=== PATIENT | female | born 1980 | race American Indian/Alaskan Native ===

== ENCOUNTER 2020-09-09 10:22 | Inpatient (IN) | payer OTHER ==
[2020-09-09] MEDS ORDERED: LACTATED RINGERS 1,000 ML IV ONE (10:42)
[2020-09-09 11:13] LABS: Bilirubin,Urine NEG (Negative); Blood,Urine LG (Negative); Color,Urine Yellow (Yellow); Mucus,Urine FEW /HPF; Protein,Urine <15 mg/dL mg/dL (Negative); Urobilinogen,Urine < 2.0 mg/dL (<2.0)
[2020-09-09] MEDS ORDERED: ACETAMINOPHEN 325 MG TAB PO PRN (11:39)
[2020-09-09] MEDS ORDERED: ONDANSETRON 4 MG/2 ML INJ IV PRN (11:39)
[2020-09-09] MEDS ORDERED: DOCUSATE SODIUM 100 MG CAP PO PRN (11:39)
[2020-09-09] MEDS ORDERED: LACTATED RINGERS 1,000 ML IV SCH (11:45)
[2020-09-09] MEDS ORDERED: CALCIUM GLUCONATE 1000 MG/10 ML INJ IV ONE (11:47)
[2020-09-09] MEDS ORDERED: MAGNESIUM SULFATE 4 GM/100 ML BAG IV ONE (11:47)
--- NOTE | 2020-09-09 11:55 | History and Physical Report ---
History of Present Illness Date of examination: 09/09/20 Date of admission: 09/09/20 Chief complaint: Pain in rectum History of present illness: Pt is a 40 yo at 22w6d EGA who presents reporting increase in chronic vaginal bleeding and rectal pain for the past few days. She states the pain is in the right side of her bottom, comes and goes. She denies abdominal pain or leaking fluid. She has received care with [facility] since 10 weeks EGA, co-managed with [facility] for advanced maternal age, fibroid uterus, and chronic abruption. On 09/04/20 she was found to have anhydramnios and cervical shortening and funneling. 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: fibroids (multiple, subserosal), herpes Family/Genetic History: cancer (breast) - Obstetrical History Expected Date of Delivery: 01/07/21 Actual Gestation: 22 Week(s) 6 Day(s) : 2 Para: 0 Hx # Term Pregnancies: 0 Number of Pregnancies: 0 Spontaneous Abortions: 0 Induced : 1 Number of Living Children: 0 Medications and Allergies Allergies Allergy/AdvReac Type Severity Reaction Status Date / Time No Known Allergies Allergy Verified 09/09/20 10:42 Active Meds: Active Medications Acetaminophen (Acetaminophen 325 Mg Tab) 650 mg PO Q4H PRN PRN Reason: Pain MILD(1-3)/Fever >100.5/QUEEN Betamethasone Acet/Betameth SodPhos (Betamet Acet/Betamet Na Ph 6 Mg/Ml Inj 5 Ml Mdv) 12 mg IM Q24HR JOSE MANUEL Stop: 09/10/20 10:01 Calcium Gluconate (Calcium Gluconate 1000 Mg/10 Ml Inj) 1,000 mg IV ONCE ONE Stop: 09/09/20 11:48 Docusate Sodium (Docusate Sodium 100 Mg Cap) 100 mg PO Q12H PRN PRN Reason: Constipation Lactated Ringer's (Lactated Ringers) 1,000 mls @ 125 mls/hr IV DIRECT JOSE MANUEL Lactated Ringer's (Lactated Ringers) 1,000 mls @ 125 mls/hr IV DIRECT JOSE MANUEL Magnesium Sulfate (Magnesium Sulfate 4gm/100ml) 4 gm in 100 mls @ 300 mls/hr IV ONCE ONE Stop: 09/09/20 12:06 Magnesium Sulfate (Magnesium Sulfate 40gm/1000ml) 40 gm in 1,000 mls @ 50 mls/hr IV DIRECT JOSE MANUEL Indomethacin (Indomethacin 25 Mg Cap) 25 mg PO Q8HR [facility] Multivitamins/Iron/Calcium ( [id number] Fumarate-Folic Acid Vit Tab) 1 each PO QDAY JOSE MANUEL Ondansetron HCl (Ondansetron 4 Mg/2 Ml Inj) 4 mg IV Q6H PRN PRN Reason: Nausea And Vomiting Sodium Chloride (Sodium Chloride 0.9% 10 Ml Flush Syringe) 10 ml IV PRN PRN PRN Reason: LINE FLUSH Review of Systems All systems: negative Genitourinary: vaginal bleeding, no leakage of fluid, no dysuria, no pelvic pain, no genital sores, no contractions - Vital Signs Vital signs: Vital Signs Pulse BP 93 H 109/71 09/09/20 11:02 09/09/20 11:02 Temp Pulse Resp BP Pulse Ox 98.9 F 93 H 16 109/71 09/09/20 11:03 09/09/20 11:02 09/09/20 11:03 09/09/20 11:02 - Physical Exam Abdomen: Positive: soft. Negative: distention, tenderness, guarding Genitourinary (Female): Positive: normal external genitalia. Negative: perineal/vulvar lesions Cervix: Positive: other (10cc bright red blood on speculum. Cervix appears 1.5cm dilated. tissue/membranes in os.) Uterus: Positive: enlarged (gravid) Extremities: Positive: normal - Obstetrical FHR: category 1 Uterine Contraction Monitor Mode: External Uterine Contraction Frequency (min): 1 Uterine Contraction Duration: 40 Uterine Contraction Pattern: Regular Uterine Tone Measurement Phase: Contraction Uterine Contraction Intensity: Mild Results Abnormal lab results 09/09/20 Range/Units 10:45 Urine WBC (Auto) 27.0 H (0.0-6.0) /HPF All other labs normal. Assessment and Plan A: 40 yo at 22w6d EGA Suspect placental abruption and ilda-viable labor Cervical shortening/funneling Fibroid uterus Anhydramnios Plan: (Per Dr. Leblanc) Admit to [facility] Magnesium sulfate for neuroprotection Betamethasone for lung maturity Indocin 25mg PO q8hr IV fluids Ultrasound for presentation and EFW Abruption labs Closely monitor clinical status
[2020-09-09] MEDS ORDERED: LIDOCAINE-MPF (1%) 10 MG/1 ML VIAL 5 ML INFILTRATI ONE (12:13)
[2020-09-09 12:46] LABS: Basophils % (Auto) 0.4 % (0.0-1.8); Eosinophils % (Auto) 0.4 % (0.0-4.3); Hematocrit 31.4 % (30.3-42.9); Hemoglobin 10.8 gm/dl (10.1-14.3); Lymphocytes # (Auto) 1.1 K/mm3 (1.2-5.4); Lymphocytes % (Auto) 15.8 % (13.4-35.0); Mean Corpuscular HGB Conc 35 % (30-34); Mean Corpuscular Volume 92 fl (79-97); Monocytes # (Auto) 0.8 K/mm3 (0.0-0.8); Monocytes % (Auto) 11.6 % (0.0-7.3); Platelet Count 296 K/mm3 (140-440); Red Blood Count 3.41 M/mm3 (3.65-5.03); Red Cell Distribution Width 14.7 % (13.2-15.2)
[2020-09-09 12:53] LABS: INR 0.95 (0.87-1.13)
[2020-09-09 12:54] LABS: Partial Thromboplastin Time 24.3 Sec. (24.2-36.6)
[2020-09-09 12:56] LABS: Alanine Aminotransferase 11 units/L (7-56); Albumin 3.7 g/dL (3.9-5); Blood Urea Nitrogen 6 mg/dL (7-17); Calcium 9.9 mg/dL (8.4-10.2); Hemolysis Index 6
[2020-09-09 12:57] LABS: BUN/Creatinine Ratio 12
[2020-09-09] MEDS: MAGNESIUM SULFATE 40GM/1000ML 40 GM/1,000 ML BAG IV SCH (13:58)
[2020-09-09] MEDS ORDERED: cefTRIAXone/NS 2 GM/100 ML 2 GM/100 ML BAG IV ONE (15:00)
[2020-09-09] MEDS: BETAMET ACET/BETAMET NA PH 6 MG/ML INJ 5 ML MDV IM SCH (15:04)
[2020-09-09] MEDS: INDOMETHACIN 25 MG CAP PO SCH ×2 (15:05→22:23)
--- NOTE | 2020-09-09 15:11 | Ultrasound Report ---
ULTRASOUND OBSTETRIC INDICATION / CLINICAL INFORMATION: EFW, presentation, BRIGID, placenta. Clinical Gestational Age (GA): 22 weeks. 5 days TECHNIQUE: Transabdominal. COMPARISON: 05/15/2020 FINDINGS: There is a single intrauterine . Biparietal Diameter = 5.5 cm = 22 weeks. 4days Head Circumference = 20.2 cm = 22 weeks. 2 days Abdominal Circumference = 17.0 cm = 22 weeks 0.days Femur Length = 3.9 cm = 22 weeks 5.days Average Ultrasound Age (AUA) = 22 weeks 3.days Heart Rate: 152 beats per minute. Estimated Weight in grams (if calculated): 493 Estimated Weight Growth Percentile (if calculated): 24 Position: breech. Placenta: Fundal grade 0 and free of the os. Amniotic Fluid Volume: Decreased. The largest volume pocket measures 0.4 cm. Maternal Adnexa: No significant abnormality. IMPRESSION: 1. Single, living intrauterine with estimated sonographic age of 22 weeks 3.days 2. Concern for oligohydramnios. The largest volume pocket measures 0.4 cm. Close follow-up is recomme nded. 3. Breech presentation. 4. Placenta is fundal, grade 0 and free of the os. Signer Name: Evangelist Alegria MD Signed: 09/09/2020 3:06 PM Workstation Name: [email or web address]
--- NOTE | 2020-09-09 16:44 | Consultation ---
History of Present Illness Consult date: 09/09/20 Requesting physician: SERINA ZAYAS Reason for consult: ovarian cyst, PROM, other (40 YO G 2 P0010 EGA 22w5d admitted due to concerns of vaginal bleeding and oligohydramnios. ) History of present illness: 40 YO EGA 22w5d was admitted due to concerns of vaginal bleeding and oligohydramnios. At this time she is without any complaints of cramping or pressure, however, reports not feeling episodes of bleeding, however, notices periodically when changing pads. She has been started on BMZ, as well as MgSO4 She has been followed by [facility] with her most recent assessment on 09/04/20 Review of her report is significant; 1. biometry measured at the 13th%, with AC laging at the 3rd% 2. Anhydramnios 3. Cervical shortening, with funneling, distal closed cervix 1.7 cm 4. Incomplete anatomy 5. Multiple fibroids, with the largest being @ 8 cm 6. AMA - reported nl NIPT Her history does not reflect PTL concerns. Based on her having recurring bleeding during this course, there has been concern of having chronic abruption sequence, as well as having chronic intermittent SROM. The US at [facility] demonstrated normal appearing bladder and kidneys, wich removes this potential concern. 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), herpes (She denies any episodes during his ) Family/Genetic History: cancer (breast) - Obstetrical History : 2 Medications and Allergies Allergies Allergy/AdvReac Type Severity Reaction Status Date / Time No Known Allergies Allergy Verified 09/09/20 10:42 Active Meds: Active Medications Acetaminophen (Acetaminophen 325 Mg Tab) 650 mg PO Q4H PRN PRN Reason: Pain MILD(1-3)/Fever >100.5/QUEEN Betamethasone Acet/Betameth SodPhos (Betamet Acet/Betamet Na Ph 6 Mg/Ml Inj 5 Ml Mdv) 12 mg IM Q24HR JOSE MANUEL Stop: 09/10/20 10:01 Last Admin: 09/09/20 15:04 Dose: 12 mg Documented by: Docusate Sodium (Docusate Sodium 100 Mg Cap) 100 mg PO Q12H PRN PRN Reason: Constipation Lactated Ringer's (Lactated Ringers) 1,000 mls @ 125 mls/hr IV DIRECT JOSE MANUEL Magnesium Sulfate (Magnesium Sulfate 40gm/1000ml) 40 gm in 1,000 mls @ 50 mls/hr IV DIRECT JOSE MANUEL Last Admin: 09/09/20 13:58 Dose: 2 gm/hr, 50 mls/hr Documented by: Indomethacin (Indomethacin 25 Mg Cap) 25 mg PO Q8HR JOSE MANUEL Last Admin: 09/09/20 15:05 Dose: 25 mg Documented by: Multivitamins/Iron/Calcium ( [id number] Fumarate-Folic Acid Vit Tab) 1 each PO QDAY JOSE MANUEL Ondansetron HCl (Ondansetron 4 Mg/2 Ml Inj) 4 mg IV Q6H PRN PRN Reason: Nausea And Vomiting Sodium Chloride (Sodium Chloride 0.9% 10 Ml Flush Syringe) 10 ml IV PRN PRN PRN Reason: LINE FLUSH - Vital Signs Vital signs: Vital Signs Pulse BP 93 H 109/71 09/09/20 11:02 09/09/20 11:02 Temp Pulse Resp BP Pulse Ox 98.9 F 98 H 16 118/70 98 09/09/20 11:03 09/09/20 16:30 09/09/20 11:03 09/09/20 16:21 09/09/20 16:30 Results Result Diagrams: 09/09/20 11:40 09/09/20 11:40 Abnormal lab results 09/09/20 09/09/20 09/09/20 Range/Units 10:45 11:40 11:40 RBC 3.41 L (3.65-5.03) M/mm3 MCHC 35 H (30-34) % [place] % (Auto) 11.6 H (0.0-7.3) % Lymph # (Auto) 1.1 L (1.2-5.4) K/mm3 Seg Neutrophils % 71.8 H (40.0-70.0) % Fibrinogen (211-480) mg/dl Sodium 136 L (137-145) mmol/L BUN 6 L (7-17) mg/dL Creatinine 0.5 L (0.6-1.2) mg/dL Albumin 3.7 L (3.9-5) g/dL Urine WBC (Auto) 27.0 H (0.0-6.0) /HPF 09/09/20 Range/Units 11:40 RBC (3.65-5.03) M/mm3 MCHC (30-34) % [place] % (Auto) (0.0-7.3) % Lymph # (Auto) (1.2-5.4) K/mm3 Seg Neutrophils % (40.0-70.0) % Fibrinogen 575 H (211-480) mg/dl Sodium (137-145) mmol/L BUN (7-17) mg/dL Creatinine (0.6-1.2) mg/dL Albumin (3.9-5) g/dL Urine WBC (Auto) (0.0-6.0) /HPF All other labs normal. Ultrasound: other ([facility] Ultrasound report from 09/04/20) Assessment and Plan IMPRESSIONS: 1. IUP 22w5d 2. Suspected prolonged SROM 3. Severe oligohydramnios 4. Having periodic contractions 5. I do not suspect chorio 6. HSV history without episodes this 7. AMA - Negative aneuploidy screen result RECOMMENDATIONS: 1. Treat patient consistent with SROM 2. Initiate IV antibiotics X 48 hrs, then convert to PO to complete a 7 day course 3. Initiate twice weekly BPP at 24 weeks 4. Monitor EFW due to IUGR risks 5. Initiate daily valtrex 6. Notify [facility] with any concerns
[2020-09-09] MEDS ORDERED: AZITHROMYCIN 250 MG TAB PO ONE (17:06)
[2020-09-09] MEDS: AMPICILLIN/NS 2 GM/100 ML 2 GM/100 ML BAG IV SCH (20:33)
[2020-09-10] MEDS: AMPICILLIN/NS 2 GM/100 ML 2 GM/100 ML BAG IV SCH ×4 (02:01→20:05)
[2020-09-10] MEDS: LACTATED RINGERS 1,000 ML IV SCH (03:39)
[2020-09-10] MEDS: INDOMETHACIN 25 MG CAP PO SCH ×3 (06:02→21:55)
[2020-09-10] MEDS: MAGNESIUM SULFATE 40GM/1000ML 40 GM/1,000 ML BAG IV SCH (08:23)
[2020-09-10] MEDS: PRENATAL VIT27-FE FUMARATE-FOLIC ACID VIT TAB PO SCH (10:00)
--- NOTE | 2020-09-10 10:51 | Progress Note ---
Assessment and Plan - Patient Problems (1) labor Current Visit: Yes Status: Acute Plan to address problem: NICU has been consulted and the prognosis has been discussed with the family Continue supportive care Deliver for signs and symptoms of chorioamnionitis (2) Anhydramnios Current Visit: Yes Status: Acute (3) premature rupture of membranes Current Visit: Yes Status: Acute Subjective - Subjective Date of service: 09/10/20 Principal diagnosis: labor and and oligohydramnios Interval history: 40-year-old -0-1-0 at 23+0 weeks who presents with a history of cervical shortening and anhydramnios on ultrasound demonstrated September 04. The patient presented to labor and delivery triage with a complaint of uterine cramping and contractions is noted to be visually 1 to 2 cm dilated. The patient has been admitted for magnesium sulfate therapy and steroid treatment. She is undergoing antibiotic therapy for presumed premature rupture membranes. Patient reports: no new complaints Objective - Vital Signs Vital Signs: Vital Signs - 12hr 09/09/20 09/09/20 09/10/20 23:52 23:53 03:40 Temperature 98 F Pulse Rate 86 83 Respiratory Rate Blood Pressure 117/64 112/69 Blood Pressure [Right] O2 Sat by Pulse 96 97 Oximetry 09/10/20 09/10/20 09/10/20 03:41 08:29 10:02 Temperature 98 F 98 F 97.9 F Pulse Rate 81 Respiratory 18 Rate Blood Pressure Blood Pressure 112/69 [Right] O2 Sat by Pulse 97 Oximetry 09/10/20 09/10/20 09/10/20 10:13 10:18 10:23 Temperature Pulse Rate 90 91 H 89 Respiratory Rate Blood Pressure Blood Pressure [Right] O2 Sat by Pulse 99 99 99 Oximetry 09/10/20 09/10/20 09/10/20 10:28 10:33 10:38 Temperature Pulse Rate 93 H 93 H 91 H Respiratory Rate Blood Pressure Blood Pressure [Right] O2 Sat by Pulse 99 97 100 Oximetry 09/10/20 09/10/20 10:43 10:48 Temperature Pulse Rate 92 H 95 H Respiratory Rate Blood Pressure Blood Pressure [Right] O2 Sat by Pulse 100 100 Oximetry - Labs Labs: Abnormal Labs 09/09/20 09/09/20 09/09/20 10:45 11:40 11:40 RBC 3.41 L MCHC 35 H [place] % (Auto) 11.6 H Lymph # (Auto) 1.1 L Seg Neutrophils % 71.8 H Fibrinogen Sodium 136 L BUN 6 L Creatinine 0.5 L Magnesium Albumin 3.7 L Urine WBC (Auto) 27.0 H 09/09/20 09/10/20 09/10/20 11:40 01:02 09:58 RBC MCHC [place] % (Auto) Lymph # (Auto) Seg Neutrophils % Fibrinogen 575 H Sodium BUN Creatinine Magnesium 4.60 H 5.40 H Albumin Urine WBC (Auto) Laboratory Results - last 24 hr 09/09/20 09/09/20 09/09/20 10:45 11:40 11:40 WBC 7.3 RBC 3.41 L Hgb 10.8 Hct 31.4 MCV 92 MCH 32 MCHC 35 H RDW 14.7 Plt Count 296 Lymph % (Auto) 15.8 [place] % (Auto) 11.6 H Eos % (Auto) 0.4 Baso % (Auto) 0.4 Lymph # (Auto) 1.1 L [place] # (Auto) 0.8 Eos # (Auto) 0.0 Baso # (Auto) 0.0 Seg Neutrophils % 71.8 H Seg Neutrophils # 5.2 PT INR APTT Fibrinogen Sodium 136 L Potassium 3.8 Chloride 103.8 Carbon Dioxide 22 Anion Gap 14 BUN 6 L Creatinine 0.5 L Estimated GFR > 60 BUN/Creatinine Ratio 12 Glucose 78 Calcium 9.9 Magnesium Total Bilirubin 0.20 AST 13 ALT 11 Alkaline Phosphatase 57 Total Protein 6.8 Albumin 3.7 L Albumin/Globulin Ratio 1.2 Urine Color Yellow Urine Turbidity Slightly-cloudy Urine pH 6.0 Ur Specific [place] 1.013 Urine Protein <15 mg/dl Urine Glucose (UA) Neg Urine Ketones Neg Urine Blood Lg Urine Nitrite Neg Urine Bilirubin Neg Urine Urobilinogen < 2.0 Ur Leukocyte Esterase Mod Urine WBC (Auto) 27.0 H Urine RBC (Auto) 43.0 U Epithel Cells (Auto) 10.0 Urine Mucus Few Blood Type Antibody Screen 09/09/20 09/09/20 09/09/20 11:40 11:40 11:40 WBC RBC Hgb Hct MCV MCH MCHC RDW Plt Count Lymph % (Auto) [place] % (Auto) Eos % (Auto) Baso % (Auto) Lymph # (Auto) [place] # (Auto) Eos # (Auto) Baso # (Auto) Seg Neutrophils % Seg Neutrophils # PT 12.5 INR 0.95 APTT 24.3 Fibrinogen 575 H Sodium Potassium Chloride Carbon Dioxide Anion Gap BUN Creatinine Estimated GFR BUN/Creatinine Ratio Glucose Calcium Magnesium 1.70 Total Bilirubin AST ALT Alkaline Phosphatase Total Protein Albumin Albumin/Globulin Ratio Urine Color Urine Turbidity Urine pH Ur Specific [place] Urine Protein Urine Glucose (UA) Urine Ketones Urine Blood Urine Nitrite Urine Bilirubin Urine Urobilinogen Ur Leukocyte Esterase Urine WBC (Auto) Urine RBC (Auto) U Epithel Cells (Auto) Urine Mucus Blood Type B POSITIVE Antibody Screen Negative 09/10/20 09/10/20 01:02 09:58 WBC RBC Hgb Hct MCV MCH MCHC RDW Plt Count Lymph % (Auto) [place] % (Auto) Eos % (Auto) Baso % (Auto) Lymph # (Auto) [place] # (Auto) Eos # (Auto) Baso # (Auto) Seg Neutrophils % Seg Neutrophils # PT INR APTT Fibrinogen Sodium Potassium Chloride Carbon Dioxide Anion Gap BUN Creatinine Estimated GFR BUN/Creatinine Ratio Glucose Calcium Magnesium 4.60 H 5.40 H Total Bilirubin AST ALT Alkaline Phosphatase Total Protein Albumin Albumin/Globulin Ratio Urine Color Urine Turbidity Urine pH Ur Specific [place] Urine Protein Urine Glucose (UA) Urine Ketones Urine Blood Urine Nitrite Urine Bilirubin Urine Urobilinogen Ur Leukocyte Esterase Urine WBC (Auto) Urine RBC (Auto) U Epithel Cells (Auto) Urine Mucus Blood Type Antibody Screen
[2020-09-10] MEDS: valACYclovir 500 MG TAB PO SCH (14:57)
[2020-09-10] MEDS: BETAMET ACET/BETAMET NA PH 6 MG/ML INJ 5 ML MDV IM SCH (14:57)
--- NOTE | 2020-09-10 16:25 | Consultation ---
Consult Note - Parent Education I met with parent(s) and discussed the following:: Need for NICU admission, Poss ible need for intubation and surfactant or other resp support, Temperature regulation, Head ultrasounds to evaluate IVH, Eye exams for ROP screening, Possible need for IV fluids/TPN and IV antibiotics, Possible need for umbilical lines, Importance of providing breast milk & encouraged pumping aft delivery, Donor breast milk if baby meets criteria after , Slow feeding advancement and monitoring of tolerance. NG/OG feeds, Need to monitor for jaundice, Data for survival & survival without significant co-morbidities Parent(s) demonstrated understanding of all the information:: Yes Assessment and Plan - Assessment Gestation:: 23 Baby's gender: Female - Plan Plan: Agree with Mag & steroids Will attend delivery Please call NICU with questions
[2020-09-11] MEDS: AMPICILLIN/NS 2 GM/100 ML 2 GM/100 ML BAG IV SCH ×3 (02:03→14:23)
[2020-09-11] MEDS: INDOMETHACIN 25 MG CAP PO SCH ×3 (06:12→21:58)
[2020-09-11] MEDS: PRENATAL VIT27-FE FUMARATE-FOLIC ACID VIT TAB PO SCH (09:57)
--- NOTE | 2020-09-11 10:54 | Progress Note ---
Assessment and Plan - Patient Problems (1) labor Current Visit: Yes Status: Acute Plan to address problem: Continue expectant management (2) Anhydramnios Current Visit: Yes Status: Acute (3) premature rupture of membranes Current Visit: Yes Status: Acute Subjective - Subjective Date of service: 09/11/20 Principal diagnosis: labor and and oligohydramnios Interval history: 40-year-old -0-1-0 at 23+1 weeks who presents with a history of cervical shortening and anhydramnios on ultrasound demonstrated September 04. The patient is currently without any significant complaints. She denies any contractions or pelvic pain. Patient reports: no new complaints Objective - Vital Signs Vital Signs: Vital Signs - 12hr 09/11/20 09/11/20 09/11/20 02:00 03:16 06:00 Temperature 98.6 F 98.1 F Pulse Rate 78 Respiratory 16 16 Rate Blood Pressure 118/68 Blood Pressure [Right] 09/11/20 09/11/20 09/11/20 07:04 07:05 09:59 Temperature 98.5 F 98.8 F Pulse Rate 80 80 75 Respiratory 14 14 Rate Blood Pressure 109/62 114/59 Blood Pressure 109/62 114/59 [Right] - Labs Labs: Abnormal Labs 09/09/20 09/09/20 09/09/20 10:45 11:40 11:40 RBC 3.41 L MCHC 35 H [place] % (Auto) 11.6 H Lymph # (Auto) 1.1 L Seg Neutrophils % 71.8 H Fibrinogen Sodium 136 L BUN 6 L Creatinine 0.5 L Magnesium Albumin 3.7 L Urine WBC (Auto) 27.0 H 09/09/20 09/10/20 09/10/20 11:40 01:02 09:58 RBC MCHC [place] % (Auto) Lymph # (Auto) Seg Neutrophils % Fibrinogen 575 H Sodium BUN Creatinine Magnesium 4.60 H 5.40 H Albumin Urine WBC (Auto) Laboratory Results - last 24 hr 09/10/20 10:28 Coronavirus (PCR) Negative
[2020-09-11] MEDS: valACYclovir 500 MG TAB PO SCH (12:31)
[2020-09-11] MEDS: AMOXICILLIN 250 MG CAP PO SCH ×2 (17:40→21:58)
[2020-09-12] MEDS: AMOXICILLIN 250 MG CAP PO SCH ×3 (05:05→22:16)
[2020-09-12] MEDS: PRENATAL VIT27-FE FUMARATE-FOLIC ACID VIT TAB PO SCH (09:52)
[2020-09-12] MEDS: valACYclovir 500 MG TAB PO SCH (10:00)
--- NOTE | 2020-09-12 13:25 | Progress Note ---
Assessment and Plan A: IUP at 23w2d s/p magnesium sulfate for neuroprotection and two doses of betamethasone Anhydramnios Suspected PPROM on latency antibiotics Suspected Chronic Abruption Sequence Multiple large uterine fibroids Malpresentation- breech GBS unknown P: Continue latency antibiotics Closely monitor maternal and status Subjective - Subjective Date of service: 09/12/20 Principal diagnosis: labor and and oligohydramnios Interval history: Pt continues to display positive attitude. Reports spotting when she urinates. Denies leakage of fluid. Reports movement. Patient reports: vaginal bleeding (per HPI ), movement normal, no new complaints, no loss of fluid, no contractions Objective - Vital Signs Vital Signs: Vital Signs - 12hr 09/12/20 09/12/20 09/12/20 03:32 07:44 07:45 Temperature 98.7 F 98.5 F Pulse Rate 65 59 L 60 Respiratory 18 18 Rate Blood Pressure 112/69 109/61 Blood Pressure 112/69 109/61 [Right] O2 Sat by Pulse 98 98 98 Oximetry 09/12/20 09/12/20 11:39 11:40 Temperature 98.8 F Pulse Rate 66 65 Respiratory 18 Rate Blood Pressure 111/66 Blood Pressure 111/66 [Right] O2 Sat by Pulse 99 98 Oximetry - Exam Breasts: deferred Abdomen: Present: soft (gravid, non tender ). Absent: tenderness Uterus: Present: normal (gravid) FHR: auscultation normal Uterine Contraction Pattern: Absent Uterine Tone Measurement Phase: Resting Extremities: normal - Labs Labs: Abnormal Labs 09/09/20 09/09/20 09/09/20 10:45 11:40 11:40 RBC 3.41 L MCHC 35 H [place] % (Auto) 11.6 H Lymph # (Auto) 1.1 L Seg Neutrophils % 71.8 H Fibrinogen Sodium 136 L BUN 6 L Creatinine 0.5 L Magnesium Albumin 3.7 L Urine WBC (Auto) 27.0 H 09/09/20 09/10/20 09/10/20 11:40 01:02 09:58 RBC MCHC [place] % (Auto) Lymph # (Auto) Seg Neutrophils % Fibrinogen 575 H Sodium BUN Creatinine Magnesium 4.60 H 5.40 H Albumin Urine WBC (Auto) - Results US- obstetric: report reviewed
[2020-09-12] MEDS: ERYTHROMYCIN BASE 250 MG CAPSULE DR PO SCH ×2 (14:00→22:16)
[2020-09-13] MEDS: AMOXICILLIN 250 MG CAP PO SCH ×3 (07:26→22:54)
[2020-09-13] MEDS: ERYTHROMYCIN BASE 250 MG CAPSULE DR PO SCH ×3 (07:26→22:54)
[2020-09-13] MEDS: valACYclovir 500 MG TAB PO SCH (09:55)
[2020-09-13] MEDS: PRENATAL VIT27-FE FUMARATE-FOLIC ACID VIT TAB PO SCH (09:55)
--- NOTE | 2020-09-13 13:01 | Consultation ---
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 History: 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 (right ankle surgery) 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, 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), 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 (She denies any episodes during his ) Family/Genetic History: cancer (breast) - Obstetrical History : 2 Medications and Allergies Allergies Allergy/AdvReac Type Severity Reaction Status Date / Time No Known Allergies Allergy Verified 09/09/20 10:42 Home Medications Medication Instructions Recorded Confirmed Last Taken Type B12 Active 1,000 mg PO DAILY 09/10/20 09/10/20 09/08/20 History Calcium 600 mg-D3 10 Mcg Sfgl 600 mg PO DAILY 09/10/20 09/10/20 09/08/20 History Ferrous Sulfate [Iron 325 MG] 325 mg PO DAILY 09/10/20 09/10/20 09/08/20 History One Daily Tablet 200 mg PO DAILY 09/10/20 09/10/20 09/08/20 History Active Meds: Active Medications Acetaminophen (Acetaminophen 325 Mg Tab) 650 mg PO Q4H PRN PRN Reason: Pain MILD(1-3)/Fever >100.5/QUEEN Amoxicillin (Amoxicillin 250 Mg Cap) 250 mg PO Q8HR JOSE MANUEL; Protocol Stop: 09/16/20 17:29 Last Admin: 09/13/20 07:26 Dose: 250 mg Documented by: Docusate Sodium (Docusate Sodium 100 Mg Cap) 100 mg PO Q12H PRN PRN Reason: Constipation Last Admin: 09/09/20 20:33 Dose: 100 mg Documented by: Erythromycin (Erythromycin Base [address]) 250 mg PO Q8HR [facility]; Protocol Stop: 09/17/20 13:59 Last Admin: 09/13/20 07:26 Dose: 250 mg Documented by: Lactated Ringer's (Lactated Ringers) 1,000 mls @ 125 mls/hr IV DIRECT [facility] Last Admin: 09/10/20 03:39 Dose: 75 mls/hr Documented by: Magnesium Sulfate (Magnesium Sulfate 40gm/1000ml) 40 gm in 1,000 mls @ 50 mls/hr IV DIRECT JOSE MANUEL Last Admin: 09/10/20 08:23 Dose: 2 gm/hr, 50 mls/hr Documented by: Multivitamins/Iron/Calcium ( [id number] Fumarate-Folic Acid Vit Tab) 1 each PO QDAY [facility] Last Admin: 09/13/20 09:55 Dose: 1 each Documented by: Ondansetron HCl (Ondansetron 4 Mg/2 Ml Inj) 4 mg IV Q6H PRN PRN Reason: Nausea And Vomiting Sodium Chloride (Sodium Chloride 0.9% 10 Ml Flush Syringe) 10 ml IV PRN PRN PRN Reason: LINE FLUSH Valacyclovir HCl (Valacyclovir 500 Mg Tab) 1,000 mg PO QDAY [facility] Last Admin: 09/13/20 09:55 Dose: 1,000 mg Documented by: - Vital Signs Vital signs: Vital Signs Pulse BP 93 H 109/71 09/09/20 11:02 09/09/20 11:02 Temp Pulse Resp BP Pulse Ox 99.0 F 76 14 116/70 99 09/13/20 10:56 09/13/20 10:56 09/13/20 10:56 09/13/20 10:56 09/13/20 10:56 Results Result Diagrams: 09/09/20 11:40 09/09/20 11:40 All other labs normal. Assessment and Plan IMPRESSIONS: 1. Gomez IUP at 23 2/7 weeks 2. Suspected prolonged SROM Verse Chronic Abruption Oligohydramnios Sequence 3. Severe oligohydramnios 4. Denies Ctx 5. Anemia 6. HSV history without episodes this 7. AMA - Negative aneuploidy screen result - Please place in chart from OB 8. Breech ( US done 09/09/20 ) RECOMMENDATIONS: 1. Delivery for S/S of [place] or compromise 2. Initiate IV antibiotics X 48 hrs, then convert to PO to complete a 7 day course 3. Initiate twice weekly BPP at 24 weeks and growth scan US q 3 weeks 4. Monitor EFW due to IUGR risks 5. Initiate daily valtrex 6. Notify [facility] with any concerns 7. Iron BID 8. NICU consult - done
--- NOTE | 2020-09-13 13:24 | Progress Note ---
Assessment and Plan - Patient Problems (1) premature rupture of membranes Current Visit: Yes Status: Acute Plan to address problem: APA recommendations reviewed. Continue IV antibiotics X 48 hrs followed by PO to complete a 7 day course Delivery for S/S of Ch[place] or compromise Twice weekly BPP at 24 weeks and growth scan US q 3 weeks Monitor EFW due to IUGR risks (2) Oligohydramnios antepartum Current Visit: Yes Status: Acute Plan to address problem: continue to monitor as outlined for signs of compromise -NICU consulation complete (3) Placental abruption in second trimester Current Visit: Yes Status: Acute Plan to address problem: Bleeding stable (4) Breech presentation Current Visit: Yes Status: Acute (5) Herpes genitalis Current Visit: Yes Status: Acute Plan to address problem: valtrex daily ordered Subjective - Subjective Principal diagnosis: labor and and oligohydramnios Interval history: 40-year-old -0-1-0 at 23w2d with a history of cervical shortening and anhydramnios on ultrasound demonstrated September 04, admitted with suspected PPROM and chronic placental abruption. She has been treated with magnesium for neuroprotection and steroids. She is undergoing antibiotic therapy for presumed premature rupture membranes. Patient reports: other (No acute events overnight, she denies uterine tenderness or foul discharge. ), no new complaints, no vaginal bleeding Objective - Vital Signs Vital Signs: Vital Signs - 12hr 09/13/20 09/13/20 09/13/20 07:11 07:12 07:13 Temperature Pulse Rate 76 Respiratory Rate Blood Pressure 117/58 Blood Pressure [Right] O2 Sat by Pulse 85 84 Oximetry 09/13/20 09/13/20 09/13/20 07:15 07:17 07:22 Temperature 99.0 F Pulse Rate 84 69 76 Respiratory 16 Rate Blood Pressure Blood Pressure 117/58 [Right] O2 Sat by Pulse 100 100 100 Oximetry 09/13/20 09/13/20 09/13/20 07:27 07:30 07:32 Temperature Pulse Rate 67 137 H 72 Respiratory Rate Blood Pressure Blood Pressure [Right] O2 Sat by Pulse 100 85 100 Oximetry 09/13/20 09/13/20 09/13/20 07:37 07:42 07:47 Temperature Pulse Rate 73 66 70 Respiratory Rate Blood Pressure Blood Pressure [Right] O2 Sat by Pulse 100 100 99 Oximetry 01/09/13/20 09/13/20 07:52 07:57 07:58 Temperature Pulse Rate 67 67 73 Respiratory Rate Blood Pressure Blood Pressure [Right] O2 Sat by Pulse 99 99 87 Oximetry 09/13/20 09/13/20 09/13/20 08:02 08:07 09:13 Temperature 98.8 F Pulse Rate 77 85 Respiratory 14 Rate Blood Pressure Blood Pressure [Right] O2 Sat by Pulse 99 99 Oximetry 09/13/20 09/13/20 10:55 10:56 Temperature 99.0 F Pulse Rate 72 76 Respiratory 14 Rate Blood Pressure 116/70 Blood Pressure 116/70 [Right] O2 Sat by Pulse 99 99 Oximetry - Exam Breasts: deferred Cardiovascular: Regular rate Abdomen: Absent: tenderness, guarding FHR: category 1 Uterine Contraction Pattern: Absent Extremities: normal, other (SCDs in place) - Labs Labs: Abnormal Labs 09/09/20 09/09/20 09/09/20 10:45 11:40 11:40 RBC 3.41 L MCHC 35 H [place] % (Auto) 11.6 H Lymph # (Auto) 1.1 L Seg Neutrophils % 71.8 H Fibrinogen Sodium 136 L BUN 6 L Creatinine 0.5 L Magnesium Albumin 3.7 L Urine WBC (Auto) 27.0 H 09/09/20 09/10/20 09/10/20 11:40 01:02 09:58 RBC MCHC [place] % (Auto) Lymph # (Auto) Seg Neutrophils % Fibrinogen 575 H Sodium BUN Creatinine Magnesium 4.60 H 5.40 H Albumin Urine WBC (Auto)
[2020-09-13] MEDS: LACTATED RINGERS 1,000 ML IV SCH (15:42)
--- NOTE | 2020-09-13 23:59 | Event Note ---
Date: 09/13/20 Late Entry: NST reviewed 1530 Baseline:150s Variability: Moderate Decelerations: variable Contractions: none, irritability present Plan: conservative treatment with O2,fluid bolus and repositioning prolonged monitoring for 4 hours Will reevaluate, plan as outlined per APA-delivery for s/s of chorioamnionits or compromise
--- NOTE | 2020-09-14 08:43 | Progress Note ---
Assessment and Plan - Patient Problems (1) labor Current Visit: Yes Status: Acute Plan to address problem: continue supportive and expectant management deliver for evidence of chorioamnionitis (2) Anhydramnios Current Visit: Yes Status: Acute (3) premature rupture of membranes Current Visit: Yes Status: Acute Subjective - Subjective Date of service: 09/14/20 Principal diagnosis: labor and and oligohydramnios Interval history: 40-year-old HD#6, -0-1-0 at 23+4 weeks who presents with a history of cervical shortening and anhydramnios on ultrasound demonstrated September 04. The patient is currently without any significant complaints. She states she has had intermittent spotting thru out the . She denies any pain or contractions. tracing last night with intermittent variables which is not unexpected for gestation. Patient reports: vaginal bleeding (per HPI ), movement normal, no new complaints, no loss of fluid, no contractions Objective - Vital Signs Vital Signs: Vital Signs - 12hr 09/13/20 09/14/20 09/14/20 23:35 03:36 07:16 Temperature 98.4 F 98.8 F Pulse Rate 87 Respiratory Rate Blood Pressure Blood Pressure [Left] O2 Sat by Pulse 83 L Oximetry 09/14/20 07:17 Temperature 98.3 F Pulse Rate 66 Respiratory 18 Rate Blood Pressure 123/75 Blood Pressure 123/75 [Left] O2 Sat by Pulse 99 Oximetry - Labs Labs: Abnormal Labs 09/09/20 09/09/20 09/09/20 10:45 11:40 11:40 RBC 3.41 L MCHC 35 H [place] % (Auto) 11.6 H Lymph # (Auto) 1.1 L Seg Neutrophils % 71.8 H Fibrinogen Sodium 136 L BUN 6 L Creatinine 0.5 L Magnesium Albumin 3.7 L Urine WBC (Auto) 27.0 H 09/09/20 09/10/20 09/10/20 11:40 01:02 09:58 RBC MCHC [place] % (Auto) Lymph # (Auto) Seg Neutrophils % Fibrinogen 575 H Sodium BUN Creatinine Magnesium 4.60 H 5.40 H Albumin Urine WBC (Auto)
[2020-09-14] MEDS: PRENATAL VIT27-FE FUMARATE-FOLIC ACID VIT TAB PO SCH (09:19)
[2020-09-14] MEDS: valACYclovir 500 MG TAB PO SCH (09:19)
--- NOTE | 2020-09-14 11:31 | Death Summary ---
Summary - Providers Consults: 09/09/20 12:12 Consult to Physician [CONS] Urgent Comment: Consulting Provider: MARIA DEL CARMEN COLLAZO Physician Instructions: Reason For Exam: vaginal bleeding, periviable labor 09/09/20 17:01 Consult to Physician [CONS] Routine Comment: Consulting Provider: BENITO WILHELM Physician Instructions: Reason For Exam: PPROM, EGA 22w6d Attending: ARTI CARRASCO - summary Date of admission: 09/11/20 15:04 - Final diagnosis (1) premature rupture of membranes Note: Final diagnosis: (2) Oligohydramnios antepartum Note: Final diagnosis: (3) Placental abruption in second trimester Note: Final diagnosis: (4) Breech presentation Note: Final diagnosis: (5) Herpes genitalis Note: Final diagnosis:
[2020-09-14] MEDS: ERYTHROMYCIN BASE 250 MG CAPSULE DR PO SCH ×2 (13:36→22:10)
[2020-09-14] MEDS: AMOXICILLIN 250 MG CAP PO SCH ×2 (13:36→22:10)
[2020-09-15] MEDS: ERYTHROMYCIN BASE 250 MG CAPSULE DR PO SCH ×2 (06:26→18:51)
[2020-09-15] MEDS: AMOXICILLIN 250 MG CAP PO SCH ×2 (06:26→18:51)
--- NOTE | 2020-09-15 08:58 | Progress Note ---
Assessment and Plan A: IUP at 23w5d s/p magnesium sulfate for neuroprotection and two doses of betamethasone Anhydramnios Suspected PPROM on latency antibiotics Suspected Chronic Abruption Sequence Multiple large uterine fibroids Malpresentation- breech GBS unknown P: Continue latency antibiotics Closely monitor maternal and status Repeat CBC, Type and Screen today Subjective - Subjective Date of service: 09/15/20 Principal diagnosis: labor and and oligohydramnios Interval history: Pt continues to display positive attitude. Reports spotting when she urinate, and when she wipes. Denies leakage of fluid. Reports movement. Patient reports: vaginal bleeding (per HPI ), movement normal, no new complaints, no loss of fluid, no contractions Objective - Vital Signs Vital Signs: Vital Signs - 12hr 09/14/20 09/14/20 09/14/20 21:05 22:32 23:05 Temperature 98.4 F 98.5 F Pulse Rate 88 Respiratory Rate Blood Pressure 136/84 Blood Pressure [Left] 09/15/20 09/15/20 09/15/20 06:27 07:14 07:21 Temperature 98.3 F Pulse Rate 82 76 76 Respiratory 14 Rate Blood Pressure 131/71 119/67 Blood Pressure 119/67 [Left] - Exam Breasts: deferred Abdomen: Present: soft (obese ). Absent: tenderness Uterus: Present: normal (gravid ) Uterine Contraction Monitor Mode: External Uterine Contraction Pattern: Absent Uterine Tone Measurement Phase: Resting Extremities: normal - Labs Labs: Abnormal Labs 09/09/20 09/09/20 09/09/20 10:45 11:40 11:40 RBC 3.41 L MCHC 35 H [place] % (Auto) 11.6 H Lymph # (Auto) 1.1 L Seg Neutrophils % 71.8 H Fibrinogen Sodium 136 L BUN 6 L Creatinine 0.5 L Magnesium Albumin 3.7 L Urine WBC (Auto) 27.0 H 09/09/20 09/10/20 09/10/20 11:40 01:02 09:58 RBC MCHC [place] % (Auto) Lymph # (Auto) Seg Neutrophils % Fibrinogen 575 H Sodium BUN Creatinine Magnesium 4.60 H 5.40 H Albumin Urine WBC (Auto)
[2020-09-15 09:38] LABS: Basophils # (Auto) 0.1 K/mm3 (0.0-0.1); Basophils % (Auto) 0.7 % (0.0-1.8); Eosinophils # (Auto) 0.1 K/mm3 (0.0-0.4); Eosinophils % (Auto) 1.3 % (0.0-4.3); Hematocrit 29.6 % (30.3-42.9); Hemoglobin 10.2 gm/dl (10.1-14.3); Lymphocytes # (Auto) 1.4 K/mm3 (1.2-5.4); Lymphocytes % (Auto) 16.7 % (13.4-35.0); Mean Corpuscular HGB Conc 34 % (30-34); Mean Corpuscular Volume 93 fl (79-97); Monocytes # (Auto) 0.6 K/mm3 (0.0-0.8); Platelet Count 279 K/mm3 (140-440); Red Cell Distribution Width 14.8 % (13.2-15.2)
[2020-09-15] MEDS: valACYclovir 500 MG TAB PO SCH (10:09)
[2020-09-15] MEDS: PRENATAL VIT27-FE FUMARATE-FOLIC ACID VIT TAB PO SCH (10:09)
[2020-09-16] MEDS: ERYTHROMYCIN BASE 250 MG CAPSULE DR PO SCH ×4 (03:11→21:24)
[2020-09-16] MEDS: AMOXICILLIN 250 MG CAP PO SCH ×3 (03:11→14:20)
[2020-09-16] MEDS: valACYclovir 500 MG TAB PO SCH (09:43)
[2020-09-16] MEDS: PRENATAL VIT27-FE FUMARATE-FOLIC ACID VIT TAB PO SCH (09:44)
--- NOTE | 2020-09-16 14:38 | Progress Note ---
Assessment and Plan A: IUP at 23w5d s/p magnesium sulfate for neuroprotection and two doses of betamethasone Anhydramnios Suspected PPROM s/p latency antibiotics Suspected Chronic Abruption Sequence Multiple large uterine fibroids Malpresentation- breech GBS unknown P: BPP tomorrow per MFM recommendations Continue to monitor for signs of chorioamnionitis Subjective - Subjective Date of service: 09/16/20 Principal diagnosis: labor and and oligohydramnios Interval history: No overnight events. Pt continues to display positive attitude. Reports spotting when she urinate, and when she wipes. Denies leakage of fluid. Reports movement. Patient reports: vaginal bleeding (per HPI ), movement normal, no new complaints, no loss of fluid, no contractions Objective - Vital Signs Vital Signs: Vital Signs - 12hr 09/16/20 09/16/20 09/16/20 03:09 08:39 12:11 Temperature 98.0 F 98.9 F 98.6 F Pulse Rate 88 83 92 H Respiratory 18 18 18 Rate Blood Pressure 119/67 119/69 117/79 Blood Pressure 119/67 [Left] O2 Sat by Pulse 98 98 Oximetry 09/16/20 12:12 Temperature Pulse Rate 61 Respiratory Rate Blood Pressure Blood Pressure [Left] O2 Sat by Pulse 93 Oximetry - Exam Breasts: deferred Abdomen: Present: soft (gravid ). Absent: tenderness Uterus: Present: normal (gravid ) FHR: auscultation normal Uterine Contraction Monitor Mode: External Uterine Tone Measurement Phase: Resting Extremities: normal - Labs Labs: Abnormal Labs 09/09/20 09/09/20 09/09/20 10:45 11:40 11:40 RBC 3.41 L Hct MCHC 35 H [place] % (Auto) 11.6 H Lymph # (Auto) 1.1 L Seg Neutrophils % 71.8 H Fibrinogen Sodium 136 L BUN 6 L Creatinine 0.5 L Magnesium Albumin 3.7 L Urine WBC (Auto) 27.0 H 09/09/20 09/10/20 09/10/20 11:40 01:02 09:58 RBC Hct MCHC [place] % (Auto) Lymph # (Auto) Seg Neutrophils % Fibrinogen 575 H Sodium BUN Creatinine Magnesium 4.60 H 5.40 H Albumin Urine WBC (Auto) 09/15/20 09:02 RBC 3.20 L Hct 29.6 L MCHC [place] % (Auto) Lymph # (Auto) Seg Neutrophils % 74.3 H Fibrinogen Sodium BUN Creatinine Magnesium Albumin Urine WBC (Auto)
[2020-09-17] MEDS: ERYTHROMYCIN BASE 250 MG CAPSULE DR PO SCH (06:18)
--- NOTE | 2020-09-17 09:00 | Ultrasound Report ---
ULTRASOUND OBSTETRIC LIMITED INDICATION / CLINICAL INFORMATION: well being. Clinical Gestational Age (GA) in weeks, days: TECHNIQUE: Transabdominal. COMPARISON: 09/09/2020. FINDINGS: AMNIOTIC FLUID INDEX (cm) = 0.00 (normal = 7-24 cm) PRESENTATION: Breech. ADDITIONAL FINDINGS: Anterior/fundal placenta, free of the os. MEASUREMENTS: - Biparietal Diameter = 5.36 cm = 22 weeks 2 days - Head Circumference = 20.06 cm = 22 weeks 1 day - Abdominal Circumference = 17.1 cm = 23 weeks 9 days - Femur Length = 4.53 cm = 25 weeks 0 days - Heart Rate (beats per minute): 153 Total AUA: 23 weeks 0 days Heterogeneous appearance of the uterus with cystic structure in the uterine fundus, likely reflecting fibroids per IMPRESSION: 1. Further decrease in amniotic fluid with no discernible amniotic fluid detected on current study. 2. Single living intrauterine with estimated sonographic age of 23 weeks 0 days. 3. Breech presentation. Signer Name: Viral Hendricks MD Signed: 09/17/2020 8:56 AM Workstation Name: [id number]
[2020-09-17] MEDS: valACYclovir 500 MG TAB PO SCH (10:22)
[2020-09-17] MEDS: PRENATAL VIT27-FE FUMARATE-FOLIC ACID VIT TAB PO SCH (10:23)
--- NOTE | 2020-09-17 10:24 | Progress Note ---
Assessment and Plan A: IUP at 24w0d s/p magnesium sulfate for neuroprotection and two doses of betamethasone Anhydramnios Suspected PPROM on latency antibiotics Suspected Chronic Abruption Sequence Multiple large uterine fibroids Malpresentation- breech GBS unknown P: Continue to monitor for signs of chorioamnionitis Growth scan perforemd rather than BPP as ordered and recommended by [facility] Plan BPP tomorrow Per pt preference, plan to consult [facility] for perinatology recommendations Subjective - Subjective Date of service: 09/17/20 Principal diagnosis: labor and and oligohydramnios Interval history: No overnight events. Pt continues to display positive attitude. Reports spotting when she urinate, and when she wipes. Denies leakage of fluid. Reports movement. Patient reports: vaginal bleeding (per HPI ), no new complaints, no loss of fluid, no contractions Objective - Vital Signs Vital Signs: Vital Signs - 12hr 09/16/20 09/16/20 09/16/20 23:45 23:46 23:51 Temperature Pulse Rate 81 88 Respiratory Rate Blood Pressure Blood Pressure [Left] O2 Sat by Pulse 85 99 98 Oximetry 09/16/20 09/17/20 09/17/20 23:56 00:01 00:06 Temperature Pulse Rate 87 87 87 Respiratory Rate Blood Pressure Blood Pressure [Left] O2 Sat by Pulse 98 98 98 Oximetry 09/17/20 09/17/20 09/17/20 00:11 05:05 05:12 Temperature 98.5 F Pulse Rate 102 H 85 85 Respiratory 16 Rate Blood Pressure 119/57 Blood Pressure 119/57 [Left] O2 Sat by Pulse 99 Oximetry 09/17/20 09/17/20 09/17/20 08:56 08:57 08:59 Temperature Pulse Rate 139 H 79 Respiratory Rate Blood Pressure 114/68 Blood Pressure [Left] O2 Sat by Pulse 89 84 Oximetry 09/17/20 09/17/20 09/17/20 09:02 09:07 09:12 Temperature Pulse Rate 95 H 90 100 H Respiratory Rate Blood Pressure Blood Pressure [Left] O2 Sat by Pulse 97 96 96 Oximetry 09/17/20 09/17/20 09/17/20 09:17 09:22 09:27 Temperature Pulse Rate 97 H 100 H 102 H Respiratory Rate Blood Pressure Blood Pressure [Left] O2 Sat by Pulse 96 96 97 Oximetry 0109/17/20 09/17/20 09:32 09:37 09:42 Temperature Pulse Rate 89 94 H 97 H Respiratory Rate Blood Pressure Blood Pressure [Left] O2 Sat by Pulse 96 97 98 Oximetry - Exam Breasts: deferred Abdomen: Present: soft (gravid ). Absent: tenderness Uterus: Present: normal (gravid ). Absent: tenderness FHR: auscultation normal Uterine Contraction Monitor Mode: External Uterine Contraction Pattern: Absent Uterine Tone Measurement Phase: Resting Extremities: normal - Labs Labs: Abnormal Labs 09/09/20 09/09/20 09/09/20 10:45 11:40 11:40 RBC 3.41 L Hct MCHC 35 H [place] % (Auto) 11.6 H Lymph # (Auto) 1.1 L Seg Neutrophils % 71.8 H Fibrinogen Sodium 136 L BUN 6 L Creatinine 0.5 L Magnesium Albumin 3.7 L Urine WBC (Auto) 27.0 H 09/09/20 09/10/20 09/10/20 11:40 01:02 09:58 RBC Hct MCHC [place] % (Auto) Lymph # (Auto) Seg Neutrophils % Fibrinogen 575 H Sodium BUN Creatinine Magnesium 4.60 H 5.40 H Albumin Urine WBC (Auto) 09/15/20 09:02 RBC 3.20 L Hct 29.6 L MCHC [place] % (Auto) Lymph # (Auto) Seg Neutrophils % 74.3 H Fibrinogen Sodium BUN Creatinine Magnesium Albumin Urine WBC (Auto) - Results US- obstetric: report reviewed
--- NOTE | 2020-09-18 08:12 | Progress Note ---
Assessment and Plan - Patient Problems (1) labor Current Visit: Yes Status: Acute Plan to address problem: expectant management of PPROM (2) Anhydramnios Current Visit: Yes Status: Acute (3) premature rupture of membranes Current Visit: Yes Status: Acute Subjective - Subjective Date of service: 09/18/20 Principal diagnosis: labor and and oligohydramnios Interval history: 40-year-old HD#6, -0-1-0 at 24+1 weeks who presents with a history of cervical shortening and anhydramnios on ultrasound demonstrated September 04. The patient is currently without any significant complaints. She is scheduled for an ultrasound today. Patient reports: vaginal bleeding (per HPI ), no new complaints, no loss of fluid, no contractions Objective - Vital Signs Vital Signs: Vital Signs - 12hr 09/17/20 09/18/20 09/18/20 22:57 06:15 06:19 Temperature 98.4 F 98.2 F Pulse Rate 87 95 H Respiratory 18 16 Rate Blood Pressure 124/66 116/70 - Labs Labs: Abnormal Labs 09/09/20 09/09/20 09/09/20 10:45 11:40 11:40 RBC 3.41 L Hct MCHC 35 H [place] % (Auto) 11.6 H Lymph # (Auto) 1.1 L Seg Neutrophils % 71.8 H Fibrinogen Sodium 136 L BUN 6 L Creatinine 0.5 L Magnesium Albumin 3.7 L Urine WBC (Auto) 27.0 H 09/09/20 09/10/20 09/10/20 11:40 01:02 09:58 RBC Hct MCHC [place] % (Auto) Lymph # (Auto) Seg Neutrophils % Fibrinogen 575 H Sodium BUN Creatinine Magnesium 4.60 H 5.40 H Albumin Urine WBC (Auto) 09/15/20 09:02 RBC 3.20 L Hct 29.6 L MCHC [place] % (Auto) Lymph # (Auto) Seg Neutrophils % 74.3 H Fibrinogen Sodium BUN Creatinine Magnesium Albumin Urine WBC (Auto)
[2020-09-18] MEDS: valACYclovir 500 MG TAB PO SCH (10:36)
[2020-09-18] MEDS: PRENATAL VIT27-FE FUMARATE-FOLIC ACID VIT TAB PO SCH (10:37)
--- NOTE | 2020-09-18 13:33 | Ultrasound Report ---
ULTRASOUND OBSTETRIC LIMITED ULTRASOUND BIOPHYSICAL PROFILE INDICATION / CLINICAL INFORMATION: 24 wks, anhydramnios, pprom. Clinical Gestational Age (GA): 24 weeks 1.days COMPARISON: 09/17/2020 FINDINGS: BREATHING MOVEMENT = 0 GROSS BODY MOVEMENT = 2 TONE = 2 QUALITATIVE AMNIOTIC FLUID VOLUME = 0 TOTAL BIOPHYSICAL SCORE = 4/8 HEART RATE (beats per minute): 153 No discernible amniotic fluid noted on this exam, similar to prior exam. PRESENTATION: Breech. ADDITIONAL FINDINGS: None. IMPRESSION: 1. Biophysical Score = 4/8 . Deductions were made for breathing movement and qualitative amniotic fluid volume. 2. No discernible amniotic fluid noted on this exam, unchanged from prior exam dated 09/17/2020. 3. Breech position. Signer Name: Evangelist Alegria MD Signed: 09/18/2020 1:29 PM Workstation Name: [id number]
--- NOTE | 2020-09-18 13:37 | Consultation ---
History of Present Illness Consult date: 09/18/20 Requesting physician: ARTI CARRASCO History of present illness: No 24 1 weeks Followed for Suspected PPROM Verse Chronic Abruption Oligohydramnios Sequance ( CAOS ) Had reported persistent vaginal bleeding now spotting while wipping using restroom - still reports spotting - No Heavy Bleeding ' [place] fevers chills abdominal pain ctxs or past gush of fluid Prior US 09/09/20 ([facility]) EFW at 493 grams 24%- Breech Labs 09/09/20 WBC 7.3 H/H at 06/24 Vitals 126/66 Abd gravid NT no rebound Ext NT Vag deferred Past History Past Surgical History: other (right ankle surgery) [place]MAN History: fibroids (multiple, subserosal), herpes (She denies any episodes during his ) Family/Genetic History: cancer (breast) - Obstetrical History : 2 Medications and Allergies Allergies Allergy/AdvReac Type Severity Reaction Status Date / Time No Known Allergies Allergy Verified 09/09/20 10:42 Home Medications Medication Instructions Recorded Confirmed Last Taken Type B12 Active 1,000 mg PO DAILY 09/10/20 09/10/20 09/08/20 History Calcium 600 mg-D3 10 Mcg Sfgl 600 mg PO DAILY 09/10/20 09/10/20 09/08/20 History Ferrous Sulfate [Iron 325 MG] 325 mg PO DAILY 09/10/20 09/10/20 09/08/20 History One Daily Tablet 200 mg PO DAILY 09/10/20 09/10/20 09/08/20 History Active Meds: Active Medications Acetaminophen (Acetaminophen 325 Mg Tab) 650 mg PO Q4H PRN PRN Reason: Pain MILD(1-3)/Fever >100.5/QUEEN Docusate Sodium (Docusate Sodium 100 Mg Cap) 100 mg PO Q12H PRN PRN Reason: Constipation Last Admin: 09/09/20 20:33 Dose: 100 mg Documented by: Lactated Ringer's (Lactated Ringers) 1,000 mls @ 125 mls/hr IV DIRECT JOSE MANUEL Last Admin: 09/13/20 15:42 Dose: 1,000 mls/hr Documented by: Magnesium Sulfate (Magnesium Sulfate 40gm/1000ml) 40 gm in 1,000 mls @ 50 mls/hr IV DIRECT [facility] Last Admin: 09/10/20 08:23 Dose: 2 gm/hr, 50 mls/hr Documented by: Multivitamins/Iron/Calcium ( Puk42-Ls Fumarate-Folic Acid Vit Tab) 1 each PO QDAY [facility] Last Admin: 09/18/20 10:37 Dose: 1 each Documented by: Ondansetron HCl (Ondansetron 4 Mg/2 Ml Inj) 4 mg IV Q6H PRN PRN Reason: Nausea And Vomiting Sodium Chloride (Sodium Chloride 0.9% 10 Ml Flush Syringe) 10 ml IV PRN PRN PRN Reason: LINE FLUSH Valacyclovir HCl (Valacyclovir 500 Mg Tab) 1,000 mg PO QDAY [facility] Last Admin: 09/18/20 10:36 Dose: 1,000 mg Documented by: - Vital Signs Vital signs: Vital Signs Pulse BP 93 H 109/71 09/09/20 11:02 09/09/20 11:02 Temp Pulse Resp BP Pulse Ox 98.2 F 101 H 16 124/67 98 09/18/20 06:15 09/18/20 10:08 09/18/20 06:15 09/18/20 09:24 09/18/20 10:08 Results Result Diagrams: 09/15/20 09:02 09/09/20 11:40 All other labs normal. Assessment and Plan IMPRESSIONS: 1. Gomez IUP at 24 1/7 weeks 2. Suspected prolonged SROM Verse Chronic Abruption Oligohydramnios Sequence 3. Severe oligohydramnios 4. Denies Ctx 5. Anemia 6. HSV history without episodes this 7. AMA - Negative aneuploidy screen result - Please place in chart from OB 8. Breech ( US done 09/09/20 ) - US Done today 09/18/20 - Results Pending RECOMMENDATIONS: 1. Delivery for S/S of [place] or compromise 2. Antibiotics per protocol complete 3. Initiate twice weekly BPP at 24 weeks and growth scan US q 3 weeks 4. Monitor EFW due to IUGR risks 5. Valtrex q day 6. Notify APA with any concerns 7. Iron BID 8. NICU consult - done
--- NOTE | 2020-09-19 07:36 | Progress Note ---
Assessment and Plan - Patient Problems (1) labor Current Visit: Yes Status: Acute Plan to address problem: continue expectant management deliver for evidence of chorioamnionitis (2) Anhydramnios Current Visit: Yes Status: Acute (3) premature rupture of membranes Current Visit: Yes Status: Acute Subjective - Subjective Date of service: 09/19/20 Principal diagnosis: labor and and oligohydramnios Interval history: 40-year-old HD#7, -0-1-0 at 24+2 weeks who presents with a history of cervical shortening and anhydramnios. Ultrasound BPP 4. No appreciable amount of fluid noted. Patient is without complaints. Denies any cramping or pain. Having intermittent spotting. Patient reports: vaginal bleeding (per HPI ), no new complaints, no loss of fluid, no contractions Objective - Vital Signs Vital Signs: Vital Signs - 12hr 09/18/20 09/18/20 09/18/20 19:35 19:40 19:45 Temperature Pulse Rate 92 H 90 95 H Respiratory Rate Blood Pressure Blood Pressure [Right] O2 Sat by Pulse 98 98 98 Oximetry 09/18/20 09/18/20 09/18/20 19:50 19:53 19:55 Temperature Pulse Rate 89 145 H 121 H Respiratory Rate Blood Pressure Blood Pressure [Right] O2 Sat by Pulse 99 48 L 91 Oximetry 09/18/20 09/18/20 09/18/20 19:59 20:00 20:51 Temperature 98.2 F Pulse Rate 41 L 92 H Respiratory 18 Rate Blood Pressure 117/67 Blood Pressure [Right] O2 Sat by Pulse 87 89 100 Oximetry 09/18/20 09/18/20 09/18/20 20:56 21:00 23:45 Temperature Pulse Rate 94 H 139 H Respiratory Rate Blood Pressure Blood Pressure [Right] O2 Sat by Pulse 100 87 83 L Oximetry 09/18/20 09/18/20 09/18/20 23:46 23:50 23:55 Temperature 98.8 F Pulse Rate 85 86 85 Respiratory 20 Rate Blood Pressure 121/72 Blood Pressure 121/72 [Right] O2 Sat by Pulse 96 99 98 Oximetry 09/19/20 03:55 Temperature 98.5 F Pulse Rate 90 Respiratory 20 Rate Blood Pressure 122/77 Blood Pressure [Right] O2 Sat by Pulse 98 Oximetry - Labs Labs: Abnormal Labs 09/09/20 09/09/20 09/09/20 10:45 11:40 11:40 RBC 3.41 L Hct MCHC 35 H [place] % (Auto) 11.6 H Lymph # (Auto) 1.1 L Seg Neutrophils % 71.8 H Fibrinogen Sodium 136 L BUN 6 L Creatinine 0.5 L Magnesium Albumin 3.7 L Urine WBC (Auto) 27.0 H 09/09/20 09/10/20 09/10/20 11:40 01:02 09:58 RBC Hct MCHC [place] % (Auto) Lymph # (Auto) Seg Neutrophils % Fibrinogen 575 H Sodium BUN Creatinine Magnesium 4.60 H 5.40 H Albumin Urine WBC (Auto) 09/15/20 09:02 RBC 3.20 L Hct 29.6 L MCHC [place] % (Auto) Lymph # (Auto) Seg Neutrophils % 74.3 H Fibrinogen Sodium BUN Creatinine Magnesium Albumin Urine WBC (Auto)
[2020-09-19] MEDS: PRENATAL VIT27-FE FUMARATE-FOLIC ACID VIT TAB PO SCH (10:13)
[2020-09-19] MEDS: valACYclovir 500 MG TAB PO SCH (10:13)
[2020-09-20] MEDS ORDERED: propofoL 200 MG/20 ML VIAL IV ONE (05:40)
[2020-09-20] MEDS ORDERED: SUCCINYLCHOLINE CHLORIDE 200 MG/10 ML INJ MDV ONE (05:40)
[2020-09-20] MEDS ORDERED: WATER FOR IRRIG STERILE 1,500 ML BOTTLE IR ONE (05:45)
[2020-09-20] MEDS ORDERED: SODIUM CHLORIDE 0.9% IRR 1,500 ML BOTTLE IR ONE (05:45)
[2020-09-20] MEDS ORDERED: ceFAZolin/STERILE WATER 2 GM/20 ML SYRINGE IV ONE (05:46)
[2020-09-20] MEDS ORDERED: ceFAZolin 1 GM VIAL ONE ×2 (05:54)
[2020-09-20] MEDS ORDERED: ROCURONIUM 50 MG/5 ML INJ IV ONE ×2 (05:56→06:34)
[2020-09-20] MEDS ORDERED: ONDANSETRON 4 MG/2 ML INJ ONE ×2 (06:09→07:00)
[2020-09-20] MEDS ORDERED: SODIUM CHLORIDE 0.9% 500 ML 500 ML IV ONE (06:11)
[2020-09-20] MEDS ORDERED: OXYTOCIN DRIP 30,000 MILLIUNITS/500 ML BAG IV ONE (06:42)
--- NOTE | 2020-09-20 06:42 | Procedure Note ---
OB Delivery Note - Delivery Date of Delivery: 09/20/20 Surgeon: LORI FONTANA JR Estimated blood loss: other (unknown) - Section Preop diagnosis: breech Postop diagnosis: same section procedure: section, primary low transverse, vertical Disposition: other Complications: transfusion Narrative: Indication: 40 yo at 24w1d admitted for extended inpatient mangement for history of cervical shortening, large uterine fibroids, concern for labor and anhydramnios. RN called and noted legs at the perineum. Primary physician not immediately available, so Dr. Fontana was called in emergently to assess patient after discussion with primary physician Dr. Saint Weiss on the phone and patient the decision was made to proceed with emergency . Findings: Large fibroid uterus with subserosal, pedunculated, intramural, and submucosal fibroids noted. Normal tubes and ovaries. No fluid noted. No nuchal cord. Delivery of breech infant vaginally with cord avulsion. Placenta delivered intra-abdominally as part of the . Delivery of at 0555 Weight unknown Height unknown APGARS unknown EBL left prior to completion of surgery, 2 units pRBCs ordered IVF left prior to completion of surgery UOP left prior to completion of surgery Procedure: Patient was taken to the operating room, prepped and draped in the usual sterile fashion with Betadine solution. Pfannenstiel skin incision was made and carried down to the underlying fascia. Fascia was incised and the incision was distended bilaterally. Rectus fascia was dissected off the rectus muscle superiorly and inferiorly. Peritoneum was identified and entered. Perit melendez incision extended superiorly and inferiorly. The bladder was visualized, however noted to be significantly distended without the Card catheter placed. Given unable to visualize the uterus given the level of the bladder, the decision was made to proceed with a vertical skin incision up extending around the umbilicus. The bladder blade was placed. Vertical uterine hysterotomy incision was made and extended bilaterally. The lower uterine segment was noted to be empty without evidence of parts. Decision was made to assess for fetus at the perineum. The fetus was delivered breech the cord was clamped and cut and handed off the team. After gentle traction the umbilical cord evulsed. Given the placenta was still in situ, we returned to the abdominal cavity. A Card was placed at that time. At that time, Dr. Leblanc entered the room and scrubbed into the case. The uterus was exteriorized and the placenta was extracted using ring forceps, manual extraction, and cleared of all clots and debris. A sharp curette was used in order to provide curettage to the endometrium. Uterine incision was closed in 3 layers with a 0 Vicryl in a running locked fashion. Good hemostasis was noted. At this time, Dr. Leblanc took over his primary surgeon and I scrubbed out of the case. Remainder of the procedure details are available within her operative report.
[2020-09-20] MEDS ORDERED: dexAMETHasone 20 MG/5 ML VIAL ONE (06:49)
[2020-09-20] MEDS ORDERED: HYDROmorphone 1 MG/1 ML INJ ONE ×2 (06:54)
[2020-09-20] MEDS ORDERED: MIDAZOLAM 2 MG/2 ML INJ ONE (06:57)
[2020-09-20] MEDS ORDERED: KETOROLAC 30 MG/1 ML INJ ONE (07:00)
[2020-09-20] MEDS ORDERED: PHENYLEPHRINE/NS 1,000 MCG/10 ML SYRINGE (OR USE) IV ONE (07:06)
[2020-09-20] MEDS ORDERED: NEOSTIGMINE 10MG/10 ML INJ MDV ONE (07:16)
[2020-09-20] MEDS ORDERED: GLYCOPYRROLATE 0.4 MG/2 ML INJ ONE (07:16)
[2020-09-20] MEDS ORDERED: BUPIVACAINE/PF (0.5%) 5 MG/1 ML 30 ML VIAL INFILTRATI ONE (07:46)
[2020-09-20] MEDS ORDERED: MORPHINE 4 MG/1 ML INJ IV PRN (07:50)
[2020-09-20] MEDS ORDERED: KETOROLAC 30 MG/1 ML INJ IV PRN (07:50)
[2020-09-20] MEDS ORDERED: NALOXONE 0.4 MG/1 ML INJ IV PRN ×2 (07:50→09:12)
[2020-09-20] MEDS ORDERED: WITCH HAZEL/ GLYCERIN PAD TP PRN (07:50)
[2020-09-20] MEDS ORDERED: LANOLIN/ZINC/DIMETHICONE (LANSINOH) 7 GM TP PRN (07:50)
[2020-09-20] MEDS ORDERED: SIMETHICONE 80 MG CHEW TAB PO PRN (07:50)
[2020-09-20] MEDS ORDERED: oxyCODONE /ACETAMINOPHEN 5-325MG TAB PO PRN (07:50)
--- NOTE | 2020-09-20 07:55 | Procedure Note ---
OB Delivery Note - Delivery Date of Delivery: 09/20/20 Surgeon: ARTI CARRASCO Real Estate Subagent: LORI CAMEJO JR Estimated blood loss: other (1600ml) - Section Preop diagnosis: breech Postop diagnosis: same section procedure: section, vertical Disposition: PACU Complications: intra-op hemorrhage - Infant A Gender: Female (weight 1lb 2oz)
[2020-09-20] MEDS ORDERED: OXYTOCIN DRIP 30 UNITS/500 ML BAG IV SCH (08:00)
--- NOTE | 2020-09-20 09:06 | Anesthesia Day of Surgery ---
Anesthesia Day of Surgery - Day of Surgery Patient Examined: Yes Patient H&P Reviewed: Yes Patient is NPO: Yes Beta Blockers: No Cardiac Clearance: No Pulmonary Clearance: No Lonnie's Test: N/A
--- NOTE | 2020-09-20 09:11 | Anesthesia Consultation ---
Anesthesia Consult and Med Hx Date of service: 09/20/20 - Airway Anesthetic Teeth Evaluation: Good ROM Head & Neck: Adequate Mental/Hyoid Distance: Adequate Mallampati Class: Class II Intubation Access Assessment: Good - Pulmonary Exam CTA: Yes - Cardiac Exam Cardiac Exam: RRR - Pre-Operative Health Status ASA Pre-Surgery Classification: ASA2 Proposed Anesthetic Plan: General - Pulmonary Hx Smoking: No Hx Asthma: No Hx Respiratory Symptoms: No SOB: No COPD: No Home Oxygen Therapy: No Hx Pneumonia: No Hx Sleep Apnea: No - Cardiovascular System Hx Hypertension: No Hx Coronary Artery Disease: No Hx Heart Attack/AMI: No Hx Angina: No Hx Percutaneous Transluminal Coronary Angioplasty (PTCA): No Hx Cardia Arrhythmia: No Hx Pacemaker: No Hx Internal Defibrillator: No Hx Valvular Heart Disease: No Hx Heart Murmur: No Hx Peripheral Vascular Disease: No - Central Nervous System Hx Neuromuscular Disorder: No Hx Seizures: No CVA: No Hx Back Pain: No Hx Psychiatric Problems: No - Gastrointestinal Hx Ulcer: No Hx Gastroesophageal Reflux Disease: No - Endocrine Hx Renal Disease: No Hx End Stage Renal Disease: No Hx Cirrhosis: No Hx Liver Disease: No Hx Insulin Dependent Diabetes: No Hx Non-Insulin Dependent Diabetes: No Hx Thyroid Disease: No Hx Hypothyroidism: No Hx Hyperthyroidism: No - Hematic Hx Anemia: No Hx Sickle Cell Disease: No - Other Systems Hx Alcohol Use: No Hx Substance Use: No Hx Cancer: No Hx Obesity: No
[2020-09-20] MEDS ORDERED: ONDANSETRON 4 MG/2 ML INJ IV PRN (09:12)
--- NOTE | 2020-09-20 09:12 | Post Anesthesia Evaluation ---
- Post Anesthesia Evaluation Patient Participated: Yes Airway Patent: Yes Stable Respiratory Function: Yes Nausea/Vomiting: No Temp > 96.8F: Yes Pain Manageable: Yes Adequeate Hydration: No Anesthesia Complications: Yes Block Receding Appropriately: Not Applicable Patient on Ventilator: No
[2020-09-20] MEDS: HYDROmorphone 1 MG/1 ML INJ IV PRN ×2 (09:40→10:40)
--- NOTE | 2020-09-20 10:00 | Operative Report ---
Operative Report Operative Report: Date of surgery: September 20, 2020 Preoperative diagnosis: at 24+3 weeks; Anhydramnios; labor; footling breech presentation; Postoperative diagnosis: Same as above Procedure: Primary classical delivery; myomectomy; uterine curettage Surgeon: Kayla Palomares M.D.[] Measurement Analyst: Malvin Fontana MD Anesthesia: General endotracheal anesthesia Estimated blood loss: 1600 mL IV fluids: 400 mL Urine output: 400 mL Blood products: 2 units packed red blood cells of O- blood Findings:[default value] Indications:[default value] Procedure: The patient was taken to the operating room and given regional anesthesia without complication. She was prepped and draped in a normal sterile fashion. A Pfannenstiel skin incision was made down to layer the fascia which was nicked in the midline extended laterally with the Bovie cautery. The superior aspect of the rectus fascia was grasped with Luisito clamps x2 and the rectus muscles off sharply. This was done in inferior fashion as well. The rectus muscle midline and peritoneum entered bluntly. An Baldemar retractor was then inserted. A bladder blade was placed. The vesicouterine peritoneum was then entered sharply with Metzenbaum scissors. A bladder flap was created digitally. A low transverse uterine incision was then made and extended digitally. There was clear fluid upon entry into the uterine cavity. The head was delivered through the incision with fundal pressure. The cord was clamped and cut x2 and infant was passed off to pediatrics. The placenta was then manually extracted. The uterus was then exteriorized and cleared of clots and debris. The uterine incision was then closed in a running locked fashion with 0 Vicryl additional imbricating stitch was applied for 2 layer closure. The serosa was then reapproximated with 3-0 Vicryl. The posterior cul-de-sac was then copiously irrigated. The uterus was replaced back into the abdomen and pelvis were the gutters were then irrigated. The Baldemar retractor was then removed. The peritoneum was then reapproximated with 3-0 Vicryl incorporating the rectus muscle. The fascia was then closed with 0 Vicryl in a running fashion. The skin was then reapproximated with 3-0 Monocryl on a Evan needle subcuticular fashion. Steri-Strips to place across the incision and a Crede procedures performed at the end of the surgery. A pressure dressing was applied to the incision. The surgery productive of a liveborn[default value] with Apgars of[default value]. The patient was taken to the recovery room in stable condition. All sponge laps and needle counts correct x2.
[2020-09-20] MEDS: MORPHINE/NS 30 MG-30 ML PCA INJ IV SCH ×2 (13:06→19:41)
[2020-09-20] MEDS: D5W/LACTATED RINGERS 1,000 ML IV SCH (18:25)
[2020-09-20 21:08] LABS: Hemoglobin 10.5 gm/dl (10.1-14.3)
[2020-09-20] MEDS ORDERED: MAGNESIUM HYDROXIDE (MOM) ORAL LIQD UDC PO PRN (22:00)
[2020-09-21] MEDS: D5W/LACTATED RINGERS 1,000 ML IV SCH (00:31)
--- NOTE | 2020-09-21 07:50 | Progress Note ---
Assessment and Plan - Patient Problems (1) labor Current Visit: Yes Status: Acute Plan to address problem: routine postop care observe for signs and symptoms of depression (2) Anhydramnios Current Visit: Yes Status: Acute (3) premature rupture of membranes Current Visit: Yes Status: Acute (4) Delivery by classical section Current Visit: Yes Status: Acute Subjective - Subjective Date of service: 09/21/20 Principal diagnosis: labor and and oligohydramnios Interval history: Patient is pod #1 s/p a primary classical delivery for labor and breech presentation. The infant recently passed secondary to extreme prematurity. The patient appears to coping well. Had an extensive discussion about the details of her surgery. Her montano has been removed and she has voided. Currently using a PROCESS DESIGN ENGINEER for pain control. Tolerating clears. Patient reports: voiding normally : Objective - Vital Signs Latest vital signs: Vital Signs Temp Pulse Resp BP BP BP Pulse Ox 09/21/20 05:17 98.2 F 104 H 20 109/69 97 09/21/20 00:57 98.5 F 111 H 20 116/72 98 09/20/20 21:23 97.9 F 112 H 20 125/81 98 09/20/20 15:03 97.7 F 110 H 16 133/80 98 09/20/20 13:15 99.1 F 118 H 20 123/87 97 09/20/20 10:40 18 09/20/20 09:00 98.1 F 88 17 112/82 97 09/20/20 08:55 98.1 F 100 H 21 115/72 97 09/20/20 08:30 98.1 F 102 H 16 125/84 97 09/20/20 08:15 91 H 20 113/77 97 09/20/20 08:00 90 19 109/65 97 09/20/20 07:54 98.5 F 90 19 97/57 97 Intake and Output 09/20/20 09/21/20 09/21/20 22:59 06:59 14:59 Intake Total 1080 1362.5 Output Total 400 Balance 1080 962.5 Intake: IV 762.5 D5lr 1,000 ml @ 125 mls/ 762.5 hr IV DIRECT [facility] Rx#: [id number] Oral 720 600 Intake, Free Water 360 Output: Urine 400 Void 400 Other: Total, Intake Amount 240 120 Total, Output Amount 400 # Voids Void 1 - Exam Incision: Present: dressed - Labs Labs: Abnormal lab results 09/20/20 Range/Units 06:05 Crossmatch See Detail
[2020-09-21] MEDS: HYDROcodone/ACETAMINOPHEN 5-325 MG TAB PO PRN ×4 (08:52→21:24)
[2020-09-21] MEDS: IBUPROFEN 600 MG TAB PO PRN ×2 (10:50→18:09)
[2020-09-21] MEDS: MAGNESIUM HYDROXIDE (MOM) ORAL LIQD UDC PO SCH ×2 (13:05→21:51)
[2020-09-22] MEDS: IBUPROFEN 600 MG TAB PO PRN ×3 (00:04→12:50)
[2020-09-22] MEDS: HYDROcodone/ACETAMINOPHEN 5-325 MG TAB PO PRN ×2 (01:29→05:04)
--- NOTE | 2020-09-22 08:37 | Progress Note ---
Assessment and Plan - Patient Problems (1) labor Current Visit: Yes Status: Acute Plan to address problem: routine postop care will consider discharge home today (2) Anhydramnios Current Visit: Yes Status: Acute (3) premature rupture of membranes Current Visit: Yes Status: Acute (4) Delivery by classical section Current Visit: Yes Status: Acute Subjective - Subjective Date of service: 09/22/20 Principal diagnosis: labor and and oligohydramnios Interval history: Patient is pod #2 s/p a primary classical delivery for labor and breech presentation. Patient reports concern about her pain not being manageable if her meds are not taken as scheduled. Discussed her narcotics s hould be taken as needed. Reports having uterine cramping. Grief appears appropriate. Patient reports: appetite normal, voiding normally, flatus, no bowel movement : Objective - Vital Signs Latest vital signs: Vital Signs Temp Pulse Resp BP Pulse Ox 09/22/20 05:04 18 09/22/20 01:29 18 09/22/20 00:06 98.7 F 103 H 20 113/72 99 09/22/20 00:04 20 09/21/20 21:24 20 09/21/20 16:55 97.7 F 103 H 18 125/72 98 Intake and Output 09/21/20 09/22/20 09/22/20 22:59 06:59 14:59 Intake Total 240 Balance 240 Intake: Oral 240 Other: Total, Intake Amount 240 # Voids Void 1 - Exam Incision: Present: dressed
--- NOTE | 2020-09-22 08:41 | Discharge Summary ---
Providers - Providers Date of Admission: 09/11/20 15:04 Date of discharge: 09/22/20 Attending physician: ARTI CARRASCO 09/09/20 17:01 Consult to Physician [CONS] Routine Comment: Consulting Provider: BENITO WILHELM Physician Instructions: Reason For Exam: PPROM, EGA 22w6d 09/18/20 07:00 Consult to Physician [CONS] Routine Comment: Consulting Provider: KENISHA COLEMAN Physician Instructions: Reason For Exam: IUP at 24 wks, PPROM, Anhydramnios, Fibroids Primary care physician: SERINA ZAYAS Hospitalization Reason for admission: labor Delivery: Procedure: section, vertical Incision: dressed Discharge diagnosis: delivery Hospital course: Patient admitted for labor and presumed PPROM. No evidence of reaccumulation of amniotic fluid on ultrasound. Patient went into labor in footling breech presentation. Had an emergent classical complicated by multiple uterine fibroids. Subsequently the infant secondary to extreme prematurity. Postop course routine. Infant found to have anomalies. Condition at discharge: Fair Disposition: [id number] TO HOME OR SELFCARE - Discharge Diagnoses (1) labor Status: Acute (2) Anhydramnios Status: Acute (3) premature rupture of membranes Status: Acute (4) Delivery by classical section Status: Acute Plan - Discharge Medications Prescriptions: Docusate Sodium [Colace] 100 mg PO BID PRN #60 capsule PRN Reason: Constipation Ibuprofen [Motrin] 800 mg PO Q8HR PRN #60 tablet PRN Reason: Pain , Severe (7-10) HYDROcodone/APAP 7.5-325 [Doyle 7.5/325] 1 each PO Q6HR PRN #45 tablet PRN Reason: Pain - Provider Discharge Summary Activity: no sex for 6 weeks, no heavy lifting 4 weeks, no strenuous exercise Diet: routine Instructions: routine Additional instructions: [] Smoking cessation referral if applicable(refer to patient education folder for contact #) [] Refer to [facility] Booklet Call your doctor immediately for: * Fever > 100.5 * Heavy vaginal bleeding ( >1 pad per hour) * Severe persistent headache * Shortness of breath * Reddened, hot, painful area to leg or breast * Drainage or odor from incision. * Keep incision clean and dry at all times and follow doctor's instructions regarding bathing/showering schedule followup in one week for staple removal - Follow up plan Follow up: SERINA ZAYAS MD [Primary Care Provider] - 7 Days
[2020-09-22] MEDS: MAGNESIUM HYDROXIDE (MOM) ORAL LIQD UDC PO SCH (12:15)
[2020-09-22 16:32] VITALS: BP 121/68
== END 2020-09-22 17:02 | disposition home or self-care (01) | DRG 765 ==
LOC: TRG 10:22 → APU 10:23 → TRG 11:54 → LD 11:55 → OBSVTOIN 09-11 15:04 → OB 09-20 14:46
PROVIDERS: ADMIT Obstetrics & Gynecology; ATTEND Obstetrics & Gynecology
PROC: 10D00Z0 Extraction of Products of Conception, High, Open Approach (ICD-10-PCS; principal; 2020-09-20)
PROC: 30233N1 Transfusion of Nonautologous Red Blood Cells into Peripheral Vein, Percutaneous Approach (ICD-10-PCS; 2020-09-20)
PROC: 0UB90ZZ Excision of Uterus, Open Approach (ICD-10-PCS; 2020-09-20)
DX: O42.012 Preterm premature rupture of membranes, onset of labor within 24 hours of rupture, second trimester (principal); O60.12X0 Preterm labor second trimester with preterm delivery second trimester, not applicable or unspecified; O32.8XX0 Maternal care for other malpresentation of fetus, not applicable or unspecified; Z3A.24 24 weeks gestation of pregnancy; D25.9 Leiomyoma of uterus, unspecified; O26.872 Cervical shortening, second trimester; Z20.822 Contact with and (suspected) exposure to COVID-19; A60.09 Herpesviral infection of other urogenital tract; O26.892 Other specified pregnancy related conditions, second trimester; Z37.0 Single live birth; O99.02 Anemia complicating childbirth; D50.0 Iron deficiency anemia secondary to blood loss (chronic)
CPT/HCPCS: 36415; 76815; 76816; 76819; 80053; 81001; 83735; 85014; 85018; 85025; 85384; 85610; 85730; 86850; 86900; 86901; 86920; 87086; 88305; 96360; G0378; J0290; J0330; J0690; J0696; J0702; J1100; J1170; J1885; J2250; J2270; J2370; J2405; J2704; J2710; J3475; J7120; J7121; P9016; U0003